=== PATIENT | female | born 1995 | race Hispanic/Latino ===

== ENCOUNTER 2017-12-02 13:57 | Emergency (ER) | payer BC ==
[2017-12-02 14:16] VITALS: TEMP 98.3
--- NOTE | 2017-12-02 14:43 | ED PDOC ---
Arrival/HPI - General Chief Complaint: Headache - History of Present Illness Narrative History of Present Illness (Text): 12/02/17 14:36 Pt is a 22 yo F with no significant PMH presents to ED with 3 day history of dizziness and headache. Pt states that she was getting a tattoo on Saturday when she passed out and hit her head. Prior to passing out, pt states that the combination of pain and anxiousness might have caused her to pass out. When she passed out she hit the left side of her head on the counter. She went to [facility] ED for evaluation. Workup there revealed a normal EKG and she was discharged. However, the day after patient states that her headache and dizziness got worse. She tried taking some excedrin that provided only minimal relief. Today, dizziness and headache persists. Pt denies any further syncopal episodes, nausea, vomiting, CP, SOB, unsteady gait, abdominal pain, fever, chills, dysuria, changes in vision, smell, or hearing. PMD: [place] Past Medical History - Provider Review Nursing Documentation Reviewed: Yes - Psychiatric Hx Psychophysiologic Disorder: No Hx Substance Use: No Family/Social History - Physician Review Nursing Documentation Reviewed: Yes Family/Social History: Other (Non-contributory) Smoking Status: Never Smoked Hx Alcohol Use: No Hx Substance Use: No Allergies/Home Meds Allergies/Adverse Reactions: Allergies No Known Allergies Allergy (Verified 12/02/17 14:08) Home Medications: Home Meds Medication Instructions Recorded Confirmed RX: Drospirenone/Estradiol 1 tab PO DAILY 12/02/17 12/02/17 [Angeliq 0.5 mg-1 mg Tablet] Review of Systems - Physician Review All systems were reviewed & negative as marked: Yes - Review of Systems Constitutional: Normal Eyes: Normal ENT: Normal Respiratory: Normal Cardiovascular: Normal Gastrointestinal: Normal. absent: Nausea, Vomiting Genitourinary Female: Normal Musculoskeletal: Normal Skin: Normal Neurological: Headache, Dizziness. absent: Focal Weakness, Gait Changes, Speech Changes, Seizure Endocrine: Normal Hemo/Lymphatic: Normal Psychiatric: Normal Physical Exam Vital Signs Reviewed: Yes Vital Signs Temp Pulse Resp BP Pulse Ox 12/02/17 17:35 67 18 121/63 98 12/02/17 16:18 65 18 122/69 98 12/02/17 14:09 98.3 F 63 16 124/70 100 Temperature: Afebrile Blood Pressure: Normal Pulse: Regular Respiratory Rate: Normal Appearance: Positive for: Well-Appearing Pain Distress: None Mental Status: Positive for: Alert and Oriented X 3 - Systems Exam Head: Present: Atraumatic, Normocephalic Pupils: Present: PERRL Extroacular Muscles: Present: EOMI Mouth: Present: Moist Mucous Membranes Neck: Present: Normal Range of Motion Respiratory/Chest: Present: Clear to Auscultation. No: Respiratory Distress, Wheezes, Rales, Rhonchi Cardiovascular: Present: Regular Rate and Rhythm, Normal S1, S2. No: Murmurs, Rub, Gallop Abdomen: No: Tenderness, Distention, Peritoneal Signs, Rebound, Guarding Back: Present: Normal Inspection Upper Extremity: Present: Normal Inspection Lower Extremity: Present: Normal Inspection Neurological: Present: GCS=15, CN II-XII Intact, Speech Normal, Other (Negative serene-hallpike.) Skin: Present: Warm, Dry, Normal Color Psychiatric: Present: Alert, Oriented x 3 Medical Decision Making ED Course and Treatment: 12/02/17 14:47 Assessment: 22 yo F presents to ED with headache and dizziness s/p syncopal event and head trauma. Plan: - CBC - CMP - Orthostatics - UA - Urine - EKG - CT Head - Reassess and disposition 12/02/17 15:26 Orthostatics negative. 12/02/17 16:18 EKG showed sinus bradycardia. 12/02/17 17:32 CT head showed no acute process. Discussed results of labs and tests with patient. As all tests were negative, explained to patient that persistent headache is likely due to tension headache. Patient was advised to use OTC medications for intermittent relief of pain and headache. At time of re-evaluation, dizziness had ceased. Advised patient to follow up with her PMD. - Lab Interpretations Lab Results: 12/02/17 15:33 12/02/17 15:33 Lab Results 12/02/17 15:33: Sodium 141, Potassium 4.5, Chloride 108 H, Carbon Dioxide 23, Anion Gap 14, BUN 17, Creatinine 0.7, Est GFR ( Amer) > 60, Est GFR (Non- Af Amer) > 60, Random Glucose 89, Calcium 10.0, Total Bilirubin 0.3, AST 21, ALT 29, Alkaline Phosphatase 29 L, Total Protein 6.9, Albumin 3.8, Globulin 3.1 , Albumin/Globulin Ratio 1.2 12/02/17 15:33: WBC 7.1, RBC 4.29, Hgb 13.0, Hct 37.4, MCV 87.2, MCH 30.3, MCHC 34.8, RDW 12.6, Plt Count 229, MPV 9.5, Gran % 57.9, Lymph % (Auto) 30.5, [place] % (Auto) 6.8 H, Eos % (Auto) 4.4, Baso % (Auto) 0.4, Gran # 4.08, Lymph # (Auto ) 2.2, [place] # (Auto) 0.5, Eos # (Auto) 0.3, Baso # (Auto) 0.03 12/02/17 15:25: Urine Color Light yellow, Urine Appearance Clear, Urine pH 6.0, Ur Specific [place] 1.015, Urine Protein Negative, Urine Glucose (UA) Negative, Urine Ketones Negative, Urine Blood Negative, Urine Nitrate Negative, Urine Bilirubin Negative, Urine Urobilinogen 0.2, Ur Leukocyte Esterase Negative - RAD Interpretation Radiology Orders: 12/02/17 15:30 HEAD W/O CONTRAST [CT] Stat - Medication Orders Current Medication Orders: Discontinued Medications Acetaminophen (Tylenol 325mg Tab) 650 mg PO STAT STA Stop: 12/02/17 16:40 Last Admin: 12/02/17 17:05 Dose: 650 mg MAR Pain/Vitals Document 12/02/17 17:05 GMD (Rec: 12/02/17 17:05 GMD [id number]) Presence of Pain Presence of Pain Yes Pain Scale Used Pain Scale Used headache Location Pain Location Body Manager Ent Disposition/Present on Arrival - Present on Arrival Any Indicators Present on Arrival: No History of DVT/PE: No History of Uncontrolled Diabetes: No Urinary Catheter: No History of Decub. Ulcer: No History Surgical Site Infection Following: None - Disposition Have Diagnosis and Disposition been Completed?: Yes Diagnosis: Headache, Vasovagal near syncope Disposition: HOME/ ROUTINE Disposition Time: 17:28 Patient Plan: Discharge Condition: STABLE Discharge Instructions (ExitCare): Tension Headache (DC), Vasovagal Response ( DC) Additional Instructions: 1. Follow up with Dr. Littlejohn if headache persists 2. Use ibuprofen or tylenol for headache/pain as per instructions on label; take with food 3. Maintain adequate hydration 4. Return to ED if symptoms worsen. Referrals: Humberto Littlejohn MD [Primary Care Provider] - Follow up with primary Forms: [employer] (Faroese)
[2017-12-02 16:00] LABS: ALB/GLOB RATIO 1.2 (1.1-1.8); ALBUMIN 3.8 g/dL (3.0-4.8); ALT/SGPT 29 U/L (7-56); AST/SGOT 21 U/L (14-36); BLOOD UREA NITROGEN 17 mg/dL (7-21); GFR AFRICAN-AMERICAN > 60; GFR NON-AFRICAN AMERICAN > 60
[2017-12-02 16:07] LABS: BASO # 0.03 K/mm3 (0.0-2.0); BASO % 0.4 % (0.0-3.0); EOS # 0.3 (0.0-0.7); EOS % 4.4 % (1.5-5.0); GRAN # 4.08 (1.4-6.5); GRAN % 57.9 % (50.0-68.0); LYMPH # 2.2 (1.2-3.4); LYMPH % 30.5 % (22.0-35.0); MEAN CELL VOLUME 87.2 fl (80.0-105.0); MEAN CORPUSCULAR HEMOGLOBIN 30.3 pg (25.0-35.0); MEAN CORPUSCULAR HGB CONC 34.8 g/dl (31.0-37.0); MEAN PLATELET VOLUME 9.5 fl (7.0-11.0); MONO # 0.5 (0.1-0.6); MONO % 6.8 % (1.0-6.0); RBC 4.29 10^6/uL (3.5-6.1); RED CELL DISTRIBUTION WIDTH 12.6 % (11.5-14.5); WHITE BLOOD COUNT 7.1 10^3/ul (4.5-11.0)
[2017-12-02 16:09] LABS: URINE BILIRUBIN NEGATIVE (NEGATIVE); URINE BLOOD NEGATIVE (NEGATIVE); URINE GLUCOSE (UA) NEGATIVE (NEGATIVE); URINE LEUKOCYTE ESTERASE NEGATIVE Leu/uL (NEGATIVE); URINE NITRATE NEGATIVE (NEGATIVE); URINE PROTEIN NEGATIVE mg/dL (<30 mg/dL); URINE UROBILINOGEN 0.2 E.U./dL (<1 E.U./dL)
[2017-12-02 16:19] VITALS: RESP 18; O2SAT 98
[2017-12-02 16:41] LABS: URINE APPEARANCE CLEAR (CLEAR); URINE COLOR LIGHT YELLOW (YELLOW)
--- NOTE | 2017-12-02 17:07 | CT ---
PROCEDURE: CT HEAD WITHOUT CONTRAST. HISTORY: dizziness COMPARISON: None available. TECHNIQUE: Axial computed tomography images were obtained through the head/brain without intravenous contrast. Radiation dose: Total exam DLP = 773 mGy-cm. This CT exam was performed using one or more of the following dose reduction techniques: Automated exposure control, adjustment of the mA and/or kV according to patient size, and/or use of iterative reconstruction technique. FINDINGS: HEMORRHAGE: No intracranial hemorrhage. BRAIN: No mass effect or edema. No atrophy or chronic microvascular ischemic changes. VENTRICLES: Unremarkable. No hydrocephalus. CALVARIUM: Unremarkable. PARANASAL SINUSES: Unremarkable as visualized. No significant inflammatory changes. MASTOID AIR CELLS: Unremarkable as visualized. No inflammatory changes. OTHER FINDINGS: None. IMPRESSION: No acute findings
[2017-12-02 17:35] VITALS: BP 121/63; PULSE 67
--- NOTE | 2017-12-02 22:25 | CARD ---
APPROVED REPORT EKG Measurement Heart [id number] <Conclusion> Sinus bradycardia Otherwise normal ECG
== END 2017-12-02 17:38 | disposition home or self-care (01) ==
LOC: ED 13:57
DX: R55 Syncope and collapse (principal); R51 Headache